=== PATIENT | female | born 1955 | race Caucasian/White ===

== ENCOUNTER → 2016-07-08 14:26 | Outpatient (CLI) | payer MEDICARE ==
[2015-11-12 12:24] VITALS: BMI 24.1
[~2016-07-08 14:26] MED LIST: ADDERALL 30 MG30 MG PO; AZOR 10-20 MG T1 TAB PO; BONIVA150 MG PO; CYMBALTA60 MG PO; DILAUDID2 MG PO; ROXICODONE15 MG PO; SOMA350 MG PO; TIAZAC/CARDIZE120 MG PO
== END | disposition home or self-care (01) ==
LOC: D.US 07-06 16:00
DX: M79.661 Pain in right lower leg (principal); M79.662 Pain in left lower leg; S80.922A Unspecified superficial injury of left lower leg, initial encounter

== ENCOUNTER 2016-07-21 11:14 | Emergency (ER) | payer MEDICARE ==
[2015-11-12 12:24] VITALS: BMI 24.1
== END 2016-07-21 13:30 | disposition home or self-care (01) ==
LOC: D.ER 11:14
DX: M25.551 Pain in right hip (principal); I73.00 Raynaud's syndrome without gangrene